=== PATIENT | female | born 1965 | race Caucasian/White ===

== ENCOUNTER → 2017-10-03 | Outpatient (CLI) | payer OTHER ==
[2017-10-03 08:24] LABS: ABSOLUTE EOSINOPHILS 0.2 thou/uL (0.0-0.7); ABSOLUTE LYMPHOCYTES 2.7 thou/uL (0.8-5.3); ABSOLUTE MONOCYTES 0.6 thou/uL (0.0-1.2); ABSOLUTE NEUTROPHILS 3.7 thou/uL (1.6-8.1); BASOPHILS 0.7 %; EOSINOPHILS 2.5 %; HEMOGLOBIN 14.5 gm/dL (12.0-15.0); LYMPHOCYTES 36.9 %; MCHC 33.6 g/dL (28.0-37.0); MCV 92.3 fL (80.0-100.0); MONOCYTES 8.5 %; MPV 8.5 fl. (7.2-11.1); NUCLEATED RBCS 0 /100WBC; PLATELET COUNT* 244 thou/uL (150-400); POLYS 51.4 %; RBC 4.66 mil/uL (4.20-5.00); WBC 7.2 thou/uL (4.0-11.0)
[2017-10-03 08:41] LABS: ALBUMIN 3.7 g/dL (3.4-5.0); CALCIUM 8.8 mg/dL (8.5-10.1); CREATININE 0.9 mg/dL (0.6-1.3); PHOSPHORUS* 3.1 mg/dL (2.5-4.9); POTASSIUM 4.2 mmol/L (3.5-5.1)
[2017-10-03 17:12] LABS: PARATHYROID HORMONE 33 pg/mL (15-65)
[2017-10-03 18:07] LABS: GLYCOHEMOGLOBIN (HGB A1C) 5.1 % (4.8-5.6); eGFR IF AFRICAN AMERICAN 94 (>59)
== END ==
LOC: M.LAB 07:53
PROVIDERS: Internal Medicine Nephrology
DX: E72.09 Other disorders of amino-acid transport (principal)